=== PATIENT | female | born 1955 | race Caucasian/White ===

== ENCOUNTER 2017-09-30 15:02 | Observation (INO) | payer OTHER ==
[2017-09-30] MEDS ORDERED: NITROGLYCERIN (SL) 0.4 MG TAB SL (16:00)
[2017-09-30 16:17] LABS: ADD MAN DIFF? NO
[2017-09-30 16:20] LABS: WHITE BLOOD COUNT 8.4 10^3/ul (4.8-10.8)
[2017-09-30 16:20] LABS: BASOPHILS % 0.2 % (0.0-2.0); EOSINOPHILS # 0.1 10^3/ul (0.0-0.5); EOSINOPHILS % 1.1 % (0.0-7.0); HEMATOCRIT 33.8 % (37.0-47.0); HEMOGLOBIN 11.6 g/dl (12.0-16.0); LYMPHOCYTES # 1.7 10^3/ul (0.8-2.9); LYMPHOCYTES % 19.8 % (15.0-51.0); MEAN CORPUSCULAR HEMOGLOBIN 30.9 pg (29.0-33.0); MEAN CORPUSCULAR HGB CONC 34.3 g/dl (32.0-37.0); MEAN CORPUSCULAR VOLUME 89.9 fl (82.0-101.0); MEAN PLATELET VOLUME 11.5 fl (7.4-10.4); MONOCYTE # 0.6 10^3/ul (0.3-0.9); MONOCYTES % 7.6 % (0.0-11.0); NEUTROPHIL # 5.9 10^3/ul (1.6-7.5); NEUTROPHILS % 70.9 % (39.0-77.0); PLATELET COUNT 120 10^3/UL (140-415); RED BLOOD COUNT 3.76 10^6/ul (4.20-5.40); RED CELL DISTRIBUTION WIDTH 13.2 % (11.5-14.5)
[2017-09-30] MEDS: ASPIRIN 81 MG TAB PO (16:27)
[2017-09-30] MEDS: NITROGLYCERIN 2% 1 GM OINT PKT TD (16:33)
[2017-09-30 16:35] LABS: ANION GAP 15 (8-16); BLOOD UREA NITROGEN 27 mg/dl (7-20); CARBON DIOXIDE 25 mmol/L (21-31); CHLORIDE 106 mmol/L (97-110); CREATININE 1.43 mg/dl (0.44-1.00); GLUCOSE 151 mg/dl (70-220); POTASSIUM 3.9 mmol/L (3.5-5.1); SODIUM 142 mmol/L (135-144)
[2017-09-30 16:51] LABS: TROPONIN-I < 0.012 ng/ml (0.00-0.12)
[2017-09-30 18:03] LABS: THYROID STIMULATING HORMONE 0.408 MIU/L (0.465-4.680)
[2017-09-30 19:07] LABS: FREE T4 (FREE THYROXINE) 0.98 ng/dl (0.78-2.44)
[2017-09-30 19:19] LABS: TROPONIN-I < 0.012 ng/ml (0.00-0.12)
[2017-09-30] MEDS ORDERED: ONDANSETRON 4 MG INJ IV ×2 (20:00)
[2017-09-30] MEDS ORDERED: BISACODYL (EC) 5 MG TAB PO (20:00)
[2017-09-30] MEDS ORDERED: ZOLPIDEM 5 MG TAB PO (20:00)
[2017-09-30] MEDS ORDERED: LORAZEPAM 2 MG INJ IV (20:00)
[2017-09-30] MEDS ORDERED: ACETAMINOPHEN 325 MG TAB PO (20:00)
[2017-09-30] MEDS: SOD CHLORIDE 0.45% 1,000 ML IV (20:00)
[2017-09-30] MEDS ORDERED: morphine 2 MG INJ IV (20:00)
[2017-09-30] MEDS ORDERED: HYDROCODONE/APAP (5/325) TAB PO (20:00)
[2017-09-30] MEDS ORDERED: DOCUSATE SODIUM 100 MG CAP PO (20:00)
[2017-09-30 20:40] LABS: CHOL/HDL RATIO 3.4 RATIO; HDL CHOLESTEROL 34 mg/dl (35-98); LDL CHOLESTEROL,CALCULATED 54 mg/dl; TRIGLYCERIDES 150 mg/dl (0-149)
[2017-09-30 20:40] LABS: CHOLESTEROL 118 mg/dl (100-200)
[2017-09-30] MEDS: SOD CHLORIDE 0.9% 1,000 ML IV (20:43)
[2017-09-30 21:11] LABS: CREATINE KINASE 52 IU/L (23-200)
[2017-09-30 21:21] LABS: CK-MB 0.53 ng/ml (0.0-2.4)
[2017-09-30 22:52] LABS: CK-MB 0.52 ng/ml (0.0-2.4)
[2017-09-30 22:59] LABS: TROPONIN-I < 0.012 ng/ml (0.00-0.12)
[2017-09-30] MEDS: ATORVASTATIN 10 MG TAB PO (23:07)
[2017-09-30 23:08] LABS: CREATINE KINASE 50 IU/L (23-200)
[2017-10-01 02:49] LABS: CREATINE KINASE 45 IU/L (23-200)
[2017-10-01 03:02] LABS: CK INDEX 1.1
[2017-10-01 03:04] LABS: TROPONIN-I < 0.012 ng/ml (0.00-0.12)
[2017-10-01] MEDS: PANTOPRAZOLE (EC) 40 MG TAB PO (06:10)
[2017-10-01] MEDS: LEVOTHYROXINE 75 MCG TAB PO (06:10)
[2017-10-01 08:00] LABS: ADD MAN DIFF? NO
[2017-10-01 08:06] LABS: WHITE BLOOD COUNT 7.7 10^3/ul (4.8-10.8)
[2017-10-01 08:06] LABS: BASOPHILS % 0.3 % (0.0-2.0); EOSINOPHILS # 0.1 10^3/ul (0.0-0.5); HEMATOCRIT 33.9 % (37.0-47.0); HEMOGLOBIN 11.4 g/dl (12.0-16.0); LYMPHOCYTES # 1.7 10^3/ul (0.8-2.9); LYMPHOCYTES % 22.4 % (15.0-51.0); MEAN CORPUSCULAR HEMOGLOBIN 30.3 pg (29.0-33.0); MEAN CORPUSCULAR HGB CONC 33.6 g/dl (32.0-37.0); MEAN CORPUSCULAR VOLUME 90.2 fl (82.0-101.0); MEAN PLATELET VOLUME 12.1 fl (7.4-10.4); MONOCYTE # 0.6 10^3/ul (0.3-0.9); MONOCYTES % 7.5 % (0.0-11.0); NEUTROPHIL # 5.3 10^3/ul (1.6-7.5); NEUTROPHILS % 68.5 % (39.0-77.0); PLATELET COUNT 118 10^3/UL (140-415); RED BLOOD COUNT 3.76 10^6/ul (4.20-5.40); RED CELL DISTRIBUTION WIDTH 13.2 % (11.5-14.5)
[2017-10-01 08:36] LABS: CREATINE KINASE 41 IU/L (23-200)
[2017-10-01 08:38] LABS: ALANINE AMINOTRANSFERASE 33 IU/L (13-69); ALBUMIN 3.8 g/dl (3.3-4.9); ALBUMIN/GLOBULIN RATIO 1.31; ALKALINE PHOSPHATASE 60 IU/L (42-121); ANION GAP 15 (8-16); ASPARTATE AMINO TRANSFERASE 30 IU/L (15-46); BILIRUBIN,INDIRECT 0.3 mg/dl (0-1.1); BILIRUBIN,TOTAL 0.3 mg/dl (0.2-1.3); BLOOD UREA NITROGEN 24 mg/dl (7-20); CALCIUM 8.7 mg/dl (8.4-10.2); CARBON DIOXIDE 26 mmol/L (21-31); CHLORIDE 105 mmol/L (97-110); CREATININE 0.92 mg/dl (0.44-1.00); GLUCOSE 99 mg/dl (70-220); MAGNESIUM 1.9 mg/dl (1.7-2.5); POTASSIUM 4.2 mmol/L (3.5-5.1); SODIUM 142 mmol/L (135-144); TOTAL PROTEIN 6.7 g/dl (6.1-8.1)
[2017-10-01 08:40] LABS: CK INDEX 0.9; CK-MB 0.35 ng/ml (0.0-2.4)
[2017-10-01 08:42] LABS: TROPONIN-I < 0.012 ng/ml (0.00-0.12)
[2017-10-01] MEDS: REGADENOSON 0.4 MG/5 ML SYG (09:10)
[2017-10-01] MEDS: CLOPIDOGREL 75 MG TAB PO (10:33)
[2017-10-01] MEDS: ATENOLOL 25 MG TAB PO (10:34)
[2017-10-01] MEDS: ASPIRIN (EC) 81 MG TAB PO (10:34)
[2017-10-01] MEDS: LOSARTAN 50 MG TAB PO (10:34)
[2017-10-01 11:03] LABS: ADD UMIC NO; UR ASCORBIC ACID NEGATIVE (NEGATIVE); UR BILIRUBIN (Dip) NEGATIVE (NEGATIVE); UR BLOOD (Dip) NEGATIVE (NEGATIVE); UR CLARITY CLEAR (CLEAR); UR COLOR STRAW (YELLOW); UR GLUCOSE (Dip) NEGATIVE (NEGATIVE); UR KETONES (Dip) NEGATIVE (NEGATIVE); UR LEUKOCYTE ESTERASE (Dip) NEGATIVE Leu/ul (NEGATIVE); UR NITRITE (Dip) NEGATIVE (NEGATIVE); UR SPECIFIC GRAVITY (Dip) 1.006 (1.003-1.030); UR TOTAL PROTEIN (Dip) NEGATIVE (NEGATIVE); UR UROBILINOGEN (Dip) NEGATIVE (NEGATIVE)
[2017-10-01 11:21] LABS: AMPHETAMINE/METHAMPHETAMINE Negative (NEGATIVE); BARBITURATES Negative (NEGATIVE); BENZODIAZEPINES Negative (NEGATIVE); CANNABINOIDS Negative (NEGATIVE); COCAINE Negative (NEGATIVE); OPIATES Negative (NEGATIVE)
== END 2017-10-01 17:50 | disposition home or self-care (01) ==
LOC: E/R 15:02 → MS4 19:34
DX: R07.9 Chest pain, unspecified (principal); R00.2 Palpitations; I25.10 Atherosclerotic heart disease of native coronary artery without angina pectoris; Z95.5 Presence of coronary angioplasty implant and graft; I10 Essential (primary) hypertension; E78.00 Pure hypercholesterolemia, unspecified; E86.0 Dehydration; E78.5 Hyperlipidemia, unspecified; E03.9 Hypothyroidism, unspecified; K21.9 Gastro-esophageal reflux disease without esophagitis; Z79.82 Long term (current) use of aspirin; Z88.1 Allergy status to other antibiotic agents; Z88.0 Allergy status to penicillin; Z88.2 Allergy status to sulfonamides; Z88.8 Allergy status to other drugs, medicaments and biological substances; Z87.891 Personal history of nicotine dependence; Z82.49 Family history of ischemic heart disease and other diseases of the circulatory system
CPT/HCPCS: 36415; 71045; 78452; 80048; 80053; 80061; 80307; 81003; 82550; 82553; 83735; 84439; 84443; 84484; 85025; 87086; 93005; 93017; 93306; 97162; 97165; 99285-25; G0378